=== PATIENT | male | born 1970 | race Caucasian/White ===

== ENCOUNTER 2018-10-26 08:55 | Emergency (ER) | payer BC ==
[2018-10-26] MEDS ORDERED: NA CHLORIDE 0.9% 1,000 ML ONE (09:33)
[2018-10-26] MEDS ORDERED: ASPIRIN 81 MG CHEWABLE TABLET ONE (09:33)
[2018-10-26 09:43] LABS: Absolute Lymphocytes (CBC) 1.2 K/uL (0.7-4.9); Absolute Monocytes 0.5 K/uL (0.1-1.3); Absolute Neutrophil 3.5 K/uL (1.8-8.0); Basophils % 1.3 % (0-1.3); Hematocrit 37.7 % (39.6-49.0); Lymphocytes % 21.6 % (15.3-44.8); MPV 7.6 fL (7.6-11.3); Monocytes % 8.8 % (3.3-12.3); RBC Red Blood Cell Count 4.29 M/uL (4.33-5.43)
[2018-10-26 09:49] LABS: Protime INR 0.96
[2018-10-26 10:23] LABS: ALT/SGPT 47 U/L (12-78); AST/SGOT 22 U/L (15-37); Alkaline Phosphatase 66 U/L (45-117); BUN Blood Urea Nitrogen 16 mg/dL (7-18); Bicarbonate 27 mmol/L (21-32); Bilirubin Direct 0.2 mg/dL (0-0.2); Bilirubin Total 0.6 mg/dL (0.2-1.0); Glucose Level 98 mg/dL (74-106); Lipase 155 U/L (73-393); NT PRO-BNP 16 pg/mL (<125); Potassium 4.1 mmol/L (3.5-5.1); Protein, Total 7.6 g/dL (6.4-8.2); Sodium Level 142 mmol/L (136-145); Troponin (Emerg Dept Use Only) < 0.02 ng/mL (0.0-0.045)
[2018-10-26] MEDS ORDERED: KETOROLAC 30 MG/ML INJ ONE (10:26)
--- NOTE | 2018-10-26 11:02 | RAD REPORT ---
EXAM DESCRIPTION: CT - Chest For Pe Angio - 10/26/2018 10:43 am CLINICAL HISTORY: Chest pain COMPARISON: None. TECHNIQUE: Dynamically enhanced axial 3 mm thick images of the chest were obtained during administra tion of <100> mL Isovue 370 IV contrast. Coronal and oblique reconstruction images were generated and reviewed. Exam utilizes a protocol for optimal evaluation of pulmonary arterial tree. Maximum intensity projections 3D imaging was utilized All CT scans are performed using dose optimization technique as appropriate and may include automated exposure control or mA/KV adjustment according to patient size. FINDINGS: A pulmonary embolus is not seen. A thoracic aortic aneurysm is not noted. A pleural effusion is not seen. A pericardial effusion is not seen. A lung consolidation is not present. IMPRESSION: Negative for a pulmonary embolism.
--- NOTE | 2018-10-26 11:03 | RAD REPORT ---
EXAM DESCRIPTION: Sergei Single View10/26/2018 9:51 am CLINICAL HISTORY: Chest pain COMPARISON: none FINDINGS: The lungs appear clear of acute infiltrate. The heart is normal size IMPRESSION: No acute abnormalities displayed
[2018-10-26 11:13] LABS: Urine Blood NEGATIVE (NEG); Urine Glucose NEGATIVE (NEG); Urine Protein NEGATIVE (NEG)
--- NOTE | 2018-10-26 11:36 | ER ---
Nurse's Notes [facility] Name: Simon Moreno Age: 48 yrs Sex: Male : 1970 Arrival Date: 10/26/2018 Time: 08:58 Bed 6 Private MD: None, None Diagnosis: Chest pain on breathing;Other chest pain;Radiculopathy, cervical region Presentation: 10/26 09:28 Acuity: ANNABELLE 3 hj 09:28 Presenting complaint: Patient states: chest pain started few days ago; now it radiates hj to the L arm;. Transition of care: patient was not received from another setting of care. Onset of symptoms was October 26, 2018. 09:28 Method Of Arrival: Ambulatory 09:30 Risk Assessment: Do you want to hurt yourself or someone else? Patient reports no hj desire to harm self or others. Initial Sepsis Screen: Does the patient meet any 2 criteria? No. Patient's initial sepsis screen is negative. Does the patient have a suspected source of infection? No. Patient's initial sepsis screen is negative. Care prior to arrival: None. Historical: - Allergies: : No Known Allergies; hj - Home Meds: : None [Active]; hj - PMHx: : None; hj - PSHx: :28 None; - Immunization history:: Adult Immunizations up to date. - Social history:: Smoking status: Patient uses tobacco products, Patient/guardian denies using alcohol. - Ebola Screening: : Patient negative for fever greater than or equal to 101.5 degrees Fahrenheit, and additional compatible Ebola Virus Disease symptoms Patient denies exposure to infectious person Patient denies travel to an Ebola-affected area in the 21 days before illness onset. Screenin:31 Abuse screen: Denies threats or abuse. Denies injuries from another. Nutritional hj screening: No deficits noted. Tuberculosis screening: No symptoms or risk factors identified. Fall Risk None identified. Assessment: 09:28 General: Appears in no apparent distress. uncomfortable, Behavior is calm, cooperative, hj appropriate for age. Pain: Complains of pain in chest Pain radiates to left arm Pain currently is 2 out of 10 on a pain scale. Quality of pain is described as sharp, Pain began 2-3 days ago. Is intermittent. Neuro: Level of Consciousness is awake, alert, obeys commands, Oriented to person, place, time, situation, Appropriate for age. Cardiovascular: Capillary refill < 3 seconds Patient's skin is warm and dry. Respiratory: Airway is patent Respiratory effort is even, unlabored, Respiratory pattern is regular, symmetrical. GI: No signs and/or symptoms were reported involving the gastrointestinal system. : No signs and/or symptoms were reported regarding the genitourinary system. EENT: No signs and/or symptoms were reported regarding the EENT system. Derm: No signs and/or symptoms reported regarding the dermatologic system. Musculoskeletal: No signs and/or symptoms reported regarding the musculoskeletal system. 10:48 Reassessment: pt back from CT Angio;. hj 12:00 Reassessment: D/C instructions given;. Vital Signs: 09:32 BP 133 / 88; Pulse 62; Resp 18; Temp 98.1(TE); Pulse Ox 97% on R/A; Weight 106.59 kg; hj Height 6 ft. 2 in. (187.96 cm); Pain 2/10; 10:51 BP 125 / 76; Pulse 63; Resp 18; Pulse Ox 100% on R/A; hj 12:10 BP 124 / 78; Pulse 65; Resp 18; Pulse Ox 100% on R/A; hj 09:32 Body Mass Index 30.17 (106.59 kg, 187.96 cm) Vitals: 09:32 Cardiac Rhythm Assessment Regular Sinus rhythm. ED Course: 08:58 Patient arrived in ED. mr 08:59 None, None is Private Physician. mr 09:15 Ray Conklin MD is Attending Physician. [facility] 09:21 Joaquin Dorado, BLAZE is Primary Nurse. hj 09:24 X-ray completed. Portable x-ray completed in exam room. Patient tolerated procedure sg4 well. 09:30 Arm band placed on right wrist. EKG completed in triage. Results shown to . hj 09:30 Initial lab(s) drawn, by me, sent to lab. EKG done, by ED staff, reviewed by Ray Conklin MD. Inserted saline lock: 20 gauge in right antecubital area, using aseptic technique. Blood collected. 09:31 Patient has correct armband on for positive identification. Placed in gown. Bed in low hj position. Call light in reach. Side rails up X 1. Adult w/ patient. cafeteria monitor on. Pulse ox on. NIBP on. 09:33 Patient maintains SpO2 saturation greater than 95% on room air. hj 09:50 XRAY Chest (1 view) In Process Unspecified. EDMS 10:43 CT Chest For PE Angio In Process Unspecified. EDMS 10:49 Triage completed. hj 11:35 Avtar Oshea MD is Referral Physician. hilario 12:09 No provider procedures requiring assistance completed. IV discontinued, intact, hj bleeding controlled, No redness/swelling at site. Pressure dressing applied. Administered Medications: 09: Drug: NS 0.9% 1000 ml Route: IV; Rate: 1 bolus; Site: right antecubital; hj 09:22 Drug: Aspirin Chewable Tablet 324 mg Route: PO; hj 09:37 Follow up: Response: No adverse reaction hj 10:08 Drug: TORadol 30 mg Route: IVP; Site: right antecubital; hj 10:18 Follow up: Response: No adverse reaction; Pain is decreased hj Outcome: 11:36 Discharge ordered by MD. hilario 12:10 Discharged to home ambulatory, with family. hj 12:10 Condition: stable 12:10 Discharge instructions given to patient, family, Instructed on discharge instructions, follow up and referral plans. medication usage, Demonstrated understanding of instructions, follow-up care, medications, Prescriptions given X 1. 12:10 Patient left the ED. hj Signatures: Dispatcher [employer] EDWallace Vargas [id number] Ray Conklin MD MD cha Rivera, Joaquin Little RN RN Cherie Sims sg4 Corrections: (The following items were deleted from the chart) 09:33 09:28 Pain: Complains of pain in chest Pain radiates to left arm Pain currently is 7 hj out of 10 on a pain scale. Quality of pain is described as sharp, Pain began 2-3 days ago. Is intermittent, hj
--- NOTE | 2018-10-26 11:37 | EDPHYS ---
Physician Documentation [facility] Name: Simon Moreno Age: 48 yrs Sex: Male : 1970 Arrival Date: 10/26/2018 Time: 08:58 Bed 6 Private MD: None, None ED Physician Ray Conklin HPI: 10/26 10:11 This 48 yrs old Male presents to ER via Unassigned with complaints of Chest hilario Pain, Numbness Of Arm. 10:11 The patient or guardian reports chest pain that is located primarily in the anterior hilario chest wall, left. Onset: 4 day(s) ago. The pain does not radiate. Associated signs and symptoms: The patient has no apparent associated signs or symptoms. The chest pain is described as sharp. Modifying factors: The symptoms are alleviated by remaining still, the symptoms are aggravated by deep breath, movement. Severity of pain: At its worst the pain was mild in the emergency department the pain is unchanged. The patient has not experienced similar symptoms in the past. Historical: - Allergies: :28 No Known Allergies; hj - Home Meds: : None [Active]; hj - PMHx: : None; hj - PSHx: : None; hj - Immunization history:: Adult Immunizations up to date. - Social history:: Smoking status: Patient uses tobacco products, Patient/guardian denies using alcohol. - Ebola Screening: : Patient negative for fever greater than or equal to 101.5 degrees Fahrenheit, and additional compatible Ebola Virus Disease symptoms Patient denies exposure to infectious person Patient denies travel to an Ebola-affected area in the 21 days before illness onset. ROS: 10:12 Constitutional: Negative for fever, chills, and weight loss, Eyes: Negative for injury, hilario pain, redness, and discharge, ENT: Negative for injury, pain, and discharge, Neck: Negative for injury, pain, and swelling, Abdomen/GI: Negative for abdominal pain, nausea, vomiting, diarrhea, and constipation, Back: Negative for injury and pain, : Negative for injury, bleeding, discharge, and swelling, MS/Extremity: Negative for injury and deformity, Skin: Negative for injury, rash, and discoloration, Neuro: Negative for headache, weakness, numbness, tingling, and seizure, Psych: Negative for depression, anxiety, suicide ideation, homicidal ideation, and hallucinations, Allergy/Immunology: Negative for hives, rash, and allergies, Endocrine: Negative for neck swelling, polydipsia, polyuria, polyphagia, and marked weight changes, Hematologic/Lymphatic: Negative for swollen nodes, abnormal bleeding, and unusual bruising. 10:12 Cardiovascular: Positive for chest pain. 10:12 Respiratory: Positive for cough, pleurisy. Exam: 10:12 Constitutional: This is a well developed, well nourished patient who is awake, alert, hilario and in no acute distress. Head/Face: Normocephalic, atraumatic. Eyes: Pupils equal round and reactive to light, extra-ocular motions intact. Lids and lashes normal. Conjunctiva and sclera are non-icteric and not injected. Cornea within normal limits. Periorbital areas with no swelling, redness, or edema. ENT: Nares patent. No nasal discharge, no septal abnormalities noted. Tympanic membranes are normal and external auditory canals are clear. Oropharynx with no redness, swelling, or masses, exudates, or evidence of obstruction, uvula midline. Mucous membranes moist. Neck: Trachea midline, no thyromegaly or masses palpated, and no cervical lymphadenopathy. Supple, full range of motion without nuchal rigidity, or vertebral point tenderness. No Meningismus. Chest/axilla: Normal chest wall appearance and motion. Nontender with no deformity. No lesions are appreciated. Respiratory: Lungs have equal breath sounds bilaterally, clear to auscultation and percussion. No rales, rhonchi or wheezes noted. No increased work of breathing, no retractions or nasal flaring. Abdomen/GI: Soft, non-tender, with normal bowel sounds. No distension or tympany. No guarding or rebound. No evidence of tenderness throughout. Back: No spinal tenderness. No costovertebral tenderness. Full range of motion. Male : Normal genitalia with no discharge or lesions. Skin: Warm, dry with normal turgor. Normal color with no rashes, no lesions, and no evidence of cellulitis. MS/ Extremity: Pulses equal, no cyanosis. Neurovascular intact. Full, normal range of motion. Neuro: Awake and alert, GCS 15, oriented to person, place, time, and situation. Cranial nerves II-XII grossly intact. Motor strength 5/5 in all extremities. Sensory grossly intact. Cerebellar exam normal. Normal gait. Psych: Awake, alert, with orientation to person, place and time. Behavior, mood, and affect are within normal limits. 10:12 Cardiovascular: Rate: normal, Rhythm: regular, Pulses: no pulse deficits are appreciated. 10:12 Musculoskeletal/extremity: Exam is negative for acute changes, ROM: intact in all extremities, full active range of motion, full passive range of motion, Circulation is intact in all extremities. Sensation intact. Compartment Syndrome exam of affected extremity: is normal. DVT Exam: No signs of deep vein thrombosis. no pain, no swelling, no tenderness, negative Homans' sign noted on exam, no appreciated bluish discoloration, no erythema, no increased warmth. 11:38 Neck: External neck: is normal, no acute changes, C-spine: appears grossly normal, no hilario acute changes, Thyroid: appears normal, no acute changes, Trachea: is midline with no obvious abnormalities, no acute changes, ROM/movement: pain, that is mild, with extension, with flexion, Lymph nodes: no appreciated lymphadenopathy. Vital Signs: 09:32 BP 133 / 88; Pulse 62; Resp 18; Temp 98.1(TE); Pulse Ox 97% on R/A; Weight 106.59 kg; Height 6 ft. 2 in. (187.96 cm); Pain 2/10; 10:51 BP 125 / 76; Pulse 63; Resp 18; Pulse Ox 100% on R/A; hj 12:10 BP 124 / 78; Pulse 65; Resp 18; Pulse Ox 100% on R/A; 09:32 Body Mass Index 30.17 (106.59 kg, 187.96 cm) MDM: 09:16 Patient medically screened. [facility] 10:16 Data reviewed: vital signs, nurses notes, lab test result(s), EKG, radiologic studies, [facility] CT scan, plain films. 10/26 09:21 Order name: Basic Metabolic Panel; Complete Time: 10:46 [facility] 10/26 09:21 Order name: CBC with Diff; Complete Time: 09:52 [facility] 10/26 09:21 Order name: LFT's; Complete Time: 10:46 [facility] 10/26 09:21 Order name: Magnesium; Complete Time: 10:46 [facility] 10/26 09:21 Order name: NT PRO-BNP; Complete Time: 10:46 [facility] 10/26 09:21 Order name: PT-INR; Complete Time: 10:46 hilario 10/26 09:21 Order name: Troponin (emerg Dept Use Only); Complete Time: 10:46 hilario 10/26 09:21 Order name: XRAY Chest (1 view); Complete Time: 11:07 hilario 10/26 09:21 Order name: Lipase; Complete Time: 10:46 hilario 10/26 10:08 Order name: CT Chest For PE Angio; Complete Time: 11:07 hilario 10/26 10:27 Order name: Urine Dipstick--Ancillary (enter results); Complete Time: 11:18 ag 10/26 09:21 Order name: EKG; Complete Time: 09:21 hilario 10/26 09:21 Order name: Cardiac monitoring; Complete Time: 09:22 hilario 10/26 09:21 Order name: EKG - Nurse/Tech; Complete Time: 09:22 hilario 10/26 09:21 Order name: IV Saline Lock; Complete Time: 09:27 hilario 10/26 09:21 Order name: Labs collected and sent; Complete Time: 09:27 [facility] 10/26 09:21 Order name: O2 Per Protocol; Complete Time: 09:22 hilario 10/26 09:21 Order name: O2 Sat Monitoring; Complete Time: 09:22 hilario 10/26 09:21 Order name: Urine Dipstick-Ancillary (obtain specimen); Complete Time: 10:07 [facility] Administered Medications: 09:22 Drug: NS 0.9% 1000 ml Route: IV; Rate: 1 bolus; Site: right antecubital; 09:22 Drug: Aspirin Chewable Tablet 324 mg Route: PO; hj 09:37 Follow up: Response: No adverse reaction hj 10:08 Drug: TORadol 30 mg Route: IVP; Site: right antecubital; hj 10:18 Follow up: Response: No adverse reaction; Pain is decreased Disposition: 10/26/18 11:36 Discharged to Home. Impression: Chest pain on breathing, Other chest pain, Radiculopathy, cervical region. - Condition is Stable. - Discharge Instructions: Cervical Radiculopathy, Nonspecific Chest Pain, Pleurisy, Nonspecific Chest Pain, [id number], Aspirin and Your Heart, Pleurisy, [id number]. - Prescriptions for Ibuprofen 600 mg Oral Tablet - take 1 tablet by ORAL route every 8 hours As needed take with food; 21 tablet. - Medication Reconciliation Form, Thank You Letter, Antibiotic Education, Prescription Opioid Use form. - Follow up: Private Physician; When: 2 - 3 days; Reason: Recheck today's complaints, Continuance of care, Re-evaluation by your physician. Follow up: Avtar Oshea MD; When: 2 - 3 days; Reason: Recheck today's complaints, Re-evaluation by your physician. - Problem is new. - Symptoms have improved. Signatures: Dispatcher [employer] EDRay El MD MD cha Joaquin, Henry RN RN hj Corrections: (The following items were deleted from the chart) 11:40 11:36 10/26/2018 11:36 Discharged to Home. Impression: Chest pain on breathing; Other hilario chest pain. Condition is Stable. Forms are Medication Reconciliation Form, Thank You Letter, Antibiotic Education, Prescription Opioid Use. Follow up: Private Physician; When: 2 - 3 days; Reason: Recheck today's complaints, Continuance of care, Re-evaluation by your physician. Follow up: Avtar Oshea; When: 2 - 3 days; Reason: Recheck today's complaints, Re-evaluation by your physician. Problem is new. Symptoms have improved. hilario 12:10 11:40 10/26/2018 11:36 Discharged to Home. Impression: Chest pain on breathing; Other hj chest pain; Radiculopathy, cervical region. Condition is Stable. Discharge Instructions: Nonspecific Chest Pain, Pleurisy, Nonspecific Chest Pain, [id number], Aspirin and Your Heart, Pleurisy, [id number]. Prescriptions for Ibuprofen 600 mg Oral Tablet - take 1 tablet by ORAL route every 8 hours As needed take with food; 21 tablet. and Forms are Medication Reconciliation Form, Thank You Letter, Antibiotic Education, Prescription Opioid Use. Follow up: Private Physician; When: 2 - 3 days; Reason: Recheck today's complaints, Continuance of care, Re-evaluation by your physician. Follow up: Avtar Oshea; When: 2 - 3 days; Reason: Recheck today's complaints, Re-evaluation by your physician. Problem is new. Symptoms have improved. hilario
--- NOTE | 2018-10-27 13:32 | EKG ---
Test Date: 2018-10-26 Test Time: 09:17:04 Sound Truck Operator: JAN MEASUREMENT RESULTS: Intervals: Rate: 70 NV: 198 QRSD: 102 QT: 404 QTc: 436 [place]: P: 41 NV: 198 QRS: 36 T: 35 INTERPRETIVE STATEMENTS: Normal sinus rhythm Normal ECG No previous ECG available for comparison Electronically Signed On 10-27-18 13:22:16 LOSS CONTROL REPRESENTATIVE by Avtar Oshea
== END 2018-10-26 12:10 | disposition home or self-care (01) ==
LOC: ER 08:55
DX: M54.12 Radiculopathy, cervical region (principal); R07.89 Other chest pain; Z72.0 Tobacco use
CPT/HCPCS: 36415; 71045; 71275; 80048; 80076; 81003; 83690; 83735; 83880; 84484; 85025; 85610; 93005; 96374; 99285; J7030; Q9967